=== PATIENT | female | born 1990 | race American Indian/Alaskan Native ===

== ENCOUNTER 2021-10-06 12:39 | Emergency (ER) | payer SELFPAY ==
[2021-10-06 13:27] VITALS: BP 115/74
[2021-10-06 13:57] LABS: Bacteria,Urine 2+ /HPF (Negative); Bilirubin,Urine NEG (Negative); Blood,Urine LG (Negative); Color,Urine Yellow (Yellow); Mucus,Urine FEW /HPF; Urobilinogen,Urine < 2.0 mg/dL (<2.0)
[2021-10-06 14:07] LABS: WBC,Urine > 182.0 /HPF (0.0-6.0)
[2021-10-06] MEDS ORDERED: LIDOCAINE-MPF (1%) 10 MG/1 ML VIAL 5 ML INFILTRATI ONE (21:17)
[2021-10-06 21:31] LABS: HCG Qualitative,Urine Negative (Negative)
--- NOTE | 2021-10-06 21:57 | Emergency Department Report ---
ED Female HPI - General Chief complaint: Urogenital-Female Stated complaint: POSSIBLE UTI Source: patient Mode of arrival: Ambulatory Limitations: No Limitations - History of Present Illness Initial comments: Patient is a nulliparous 31-year-old -[place] female with no past medical history who presents to the ED with complaint of acute onset persistent dysuria, urinary frequency and urgency and suprapubic pressure for the last 4 days. Patient states that the symptoms have worsened in the last 2 days. Patient denies fever, chills, vaginal bleeding, nausea and vomiting, low back pain, abdominal pain, diarrhea, dyspareunia, headache or body aches and pains. MD Complaint: dysuria, pelvic pain (Pressure), other (Urinary frequency and urg ency) -: days(s) (4) Location: suprapubic Radiation: non-radiating Severity: severe Severity scale (0 -10): 7 Quality: sharp, burning Consistency: intermittent Improves with: none Worsens with: urination Are you Now?: No Associated Symptoms: denies other symptoms, abdominal pain (Suprapubic pressure), dysuria, other (Urinary frequency and urgency). denies: vaginal discharge, vaginal bleeding, nausea/vomiting, fever/chills, headaches, loss of appetite, hematuria, rash, seizure, shortness of breath, syncope, weakness - Related Data Sexually active: No : 0 Para: 0 A: 0 Previous Rx's Medication Instructions Recorded Last Taken Type Fluconazole [Diflucan TAB] 200 mg PO QDAY #1 tablet 10/06/21 Unknown Rx Ibuprofen [Motrin] 600 mg PO Q8H PRN #24 tablet 10/06/21 Unknown Rx Phenazopyridine [Pyridium] 200 mg PO TID #21 tab 10/06/21 Unknown Rx Sulfamethoxazole/Trimethoprim 1 each PO Q12H #20 tab 10/06/21 Unknown Rx [Bactrim DS TAB] Allergies Allergy/AdvReac Type Severity Reaction Status Date / Time No Known Allergies Allergy Verified 10/06/21 13:27 ED Review of Systems ROS: Stated complaint: POSSIBLE UTI Other details as noted in HPI Constitutional: denies: chills, fever Eyes: denies: eye pain, eye discharge, vision change ENT: denies: ear pain, throat pain Respiratory: denies: cough, shortness of breath, wheezing Cardiovascular: denies: chest pain, palpitations Endocrine: no symptoms reported Gastrointestinal: abdominal pain (Suprapubic pressure). denies: nausea, vomiting, diarrhea Genitourinary: urgency, dysuria, frequency. denies: hematuria, discharge, abnormal menses, dyspareunia Musculoskeletal: denies: back pain, joint swelling, arthralgia Skin: denies: rash, lesions Neurological: denies: headache, weakness, paresthesias Psychiatric: denies: anxiety, depression Hematological/Lymphatic: denies: easy bleeding, easy bruising ED Past Medical Hx - Past Medical History Previous Medical History?: No - Medications Home Medications: Home Medications Medication Instructions Recorded Confirmed Last Taken Type Fluconazole [Diflucan TAB] 200 mg PO QDAY #1 tablet 10/06/21 Unknown Rx Ibuprofen [Motrin] 600 mg PO Q8H PRN #24 tablet 10/06/21 Unknown Rx Phenazopyridine [Pyridium] 200 mg PO TID #21 tab 10/06/21 Unknown Rx Sulfamethoxazole/Trimethoprim 1 each PO Q12H #20 tab 10/06/21 Unknown Rx [Bactrim DS TAB] ED Physical Exam - General Limitations: No Limitations General appearance: alert, in no apparent distress - Head Head exam: Present: atraumatic, normocephalic, normal inspection - Eye Eye exam: Present: normal appearance, PERRL, EOMI Pupils: Present: normal accommodation - ENT ENT exam: Present: normal exam, normal orophraynx, mucous membranes moist, TM's normal bilaterally, normal external ear exam - Neck Neck exam: Present: normal inspection, full ROM - Respiratory Respiratory exam: Present: normal lung sounds bilaterally. Absent: respiratory distress, wheezes, rales, stridor, chest wall tenderness, accessory muscle use, decreased breath sounds, prolonged expiratory - Cardiovascular Cardiovascular Exam: Present: regular rate, normal rhythm, normal heart sounds. Absent: systolic murmur, diastolic murmur, rubs, gallop - GI/Abdominal GI/Abdominal exam: Present: soft, normal bowel sounds. Absent: distended, tenderness, guarding, rebound, hyperactive bowel sounds, hypoactive bowel sounds, organomegaly - Bi-manual exam: Present: other (Pelvic exam deferred at this) - Extremities Exam Extremities exam: Present: normal inspection, full ROM, normal capillary refill - Back Exam Back exam: Present: normal inspection, full ROM. Absent: tenderness, CVA tenderness (R), CVA tenderness (L), muscle spasm, paraspinal tenderness, vertebral tenderness - Neurological Exam Neurological exam: Present: alert, oriented X3, CN II-XII intact, normal gait, reflexes normal - Psychiatric Psychiatric exam: Present: normal affect, normal mood - Skin Skin exam: Present: warm, dry, intact, normal color. Absent: rash ED Course Vital Signs 10/06/21 13:25 Temperature 98.8 F Pulse Rate 77 Respiratory 16 Rate Blood Pressure 115/74 O2 Sat by Pulse 97 Oximetry ED Medical Decision Making - Medical Decision Making This is a nulliparous 31-year-old -[place] female with no past medical history who presents to the ED with complaint of acute onset persistent dysuria, urinary frequency and urgency and suprapubic pressure for the last 4 days. Patient states that the symptoms have worsened in the last 2 days. In the ED, patient is alert and oriented x3 and is not in any distress. Urinalysis showed significant urinary tract infection. Patient was treated in the ED with Rocephin 1 g intramuscular injection. Patient was discharged home on antibiotics and advised to follow-up with her primary care physician in 7 to 10 days for reevaluation or return to the ED immediately if symptoms get worse. - Differential Diagnosis UTI; cystitis; pyelonephritis; ovarian cyst; STD Critical care attestation.: If time is entered above; I have spent that time in minutes in the direct care of this critically ill patient, excluding procedure time. ED Disposition Clinical Impression: Acute urinary tract infection Disposition: HOME / SELF CARE / HOMELESS Is pt being admited?: No Does the pt Need Aspirin: No Condition: Stable Instructions: Urinary Tract Infection, Adult, [id number], Antibiotic Medicine, Adult, [id number] Additional Instructions: The urinalysis test in the ED showed significant urinary tract infection and a negative hCG test. Therefore take medication with food, drink plenty fluids and follow-up with your primary care physician in 7 to 10 days for reevaluation. Return to the ED immediately if symptoms get worse. Prescriptions: Sulfamethoxazole/Trimethoprim [Bactrim DS TAB] 1 each PO Q12H #20 tab Fluconazole [Diflucan TAB] 200 mg PO QDAY #1 tablet Ibuprofen [Motrin] 600 mg PO Q8H PRN #24 tablet PRN Reason: Pain Phenazopyridine [Pyridium] 200 mg PO TID #21 tab Referrals: [facility] [Provider Group] - 7-10 days Forms: Work/School Release Form(ED) Time of Disposition: 21:57 Print Language: TUVALU[place]
== END 2021-10-06 22:58 | disposition home or self-care (01) ==
LOC: ED 12:39
DX: N39.0 Urinary tract infection, site not specified (principal)
CPT/HCPCS: 81001; 81025; 96372; 99283; J0696; J3490